=== PATIENT | male | born 1960 | race Caucasian/White ===

== ENCOUNTER → 2017-04-24 | Outpatient (CLI) | payer MEDICARE, BC ==
--- NOTE | 2017-04-24 23:15 | MR ---
EXAMINATION TYPE: MR lumbar spine wo con DATE OF EXAM: 04/24/2017 COMPARISON: 03/30/2010 HISTORY: Low back pain getting worse, previous MRI on PACS 03/2010 TECHNIQUE: Multiplanar, multisequence images of the lumbar spine were acquired. There is 5 mm anterior subluxation of L4 in relation L5. There is mild decreased signal and narrowing at the L4-5 L5-S1 disc spaces. There is posterior mild central disc herniation at L5-S1 into the spi nal canal. There is hypertrophic facet arthropathy at L4-5. There is no paraspinal mass. I see no spo ndylolysis. There is narrowing of the neural foramina bilaterally at L4-5 and L5-S1 due to facet arth ropathy and subluxation. There is mild L4-5 bony spinal stenosis. There is no compression fracture. IMPRESSION: Spondylosis in the lower lumbar spine. There is a posterior L5-S1 disc herniation without significant impingement on the neural elements. This is stable compared to old exam. There is new degenerative first degree L4-5 spondylolisthesis and new spinal stenosis at L4-5 compare d to old exam. No definite spondylolysis seen.
== END | disposition home or self-care (01) ==
LOC: RADMRIMAIN 19:50
PROVIDERS: ATTEND Family Medicine
DX: M51.27 Other intervertebral disc displacement, lumbosacral region (principal); M43.16 Spondylolisthesis, lumbar region; M47.816 Spondylosis without myelopathy or radiculopathy, lumbar region
CPT/HCPCS: 72148

== ENCOUNTER 2017-11-22 22:54 | Emergency (ER) | payer BC, MEDICARE ==
[2017-11-22 22:59] VITALS: BP 118/87; PULSE 80; RESP 16; TEMP 98.2
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
--- NOTE | 2017-11-22 23:31 | XR ---
EXAMINATION TYPE: XR hand complete LT DATE OF EXAM: 11/22/2017 COMPARISON: NONE HISTORY: Left thumb tingling TECHNIQUE: 3 views FINDINGS: I see no fracture nor dislocation. Metacarpals are intact. There is mild spurring at the IP joint of the thumb. There is mild spurring at the DIP joints of the fingers. There is spurring at th e first carpometacarpal joint. There are no erosions. IMPRESSION: There is some osteoarthritis. No fracture. No sign of inflammatory arthritis.
== END 2017-11-22 23:45 | disposition home or self-care (01) ==
LOC: EC 22:54
DX: M19.042 Primary osteoarthritis, left hand (principal); M77.9 Enthesopathy, unspecified; J44.9 Chronic obstructive pulmonary disease, unspecified; Z86.718 Personal history of other venous thrombosis and embolism; Z86.14 Personal history of Methicillin resistant Staphylococcus aureus infection; Z98.890 Other specified postprocedural states; Z88.6 Allergy status to analgesic agent; Z88.1 Allergy status to other antibiotic agents; Z88.0 Allergy status to penicillin; Z79.51 Long term (current) use of inhaled steroids; Z79.899 Other long term (current) drug therapy
CPT/HCPCS: 29125; 99283

== ENCOUNTER 2023-04-28 16:53 | Emergency (ER) | payer MEDICARE ==
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
--- NOTE | 2023-04-28 17:59 | XR ---
Right knee HISTORY: Knee pain following fall. COMPARISON: None TECHNIQUE: 3 views the right knee were obtained. FINDINGS: There is no fracture, dislocation or focal intraosseous abnormality. There is tricompartment osteoarthritis moderate in the medial compartment where there is moderate ebenezer rowing and hypertrophic spurring and mild in the lateral compartment where there is mild narrowing an d hypertrophic spurring and chondrocalcinosis. There is severe narrowing and hypertrophic spurring in the patellofemoral compartment consistent with severe osteoarthritic change.. There is no joint effu falguni. Soft tissues unremarkable. IMPRESSION: 1. No evidence of acute trauma. 2. Tricompartment osteoarthritis as described above.
--- NOTE | 2023-04-28 18:00 | XR ---
Right shoulder HISTORY: Pain following fall COMPARISON: None TECHNIQUE: 3 views the right shoulder were obtained. FINDINGS: There is no fracture, dislocation, intra-articular or intraosseous abnormality. IMPRESSION: No evidence of acute trauma.
--- NOTE | 2023-04-28 18:02 | XR ---
Cervical spine HISTORY: Pain following fall. COMPARISON: None TECHNIQUE: Views of the cervical spine were obtained FINDINGS: The craniovertebral junction relationships and prevertebral soft tissues are normal. The cervical vertebral segments are normal in height and alignment and there is no fracture subluxati on. There is mild to moderate degenerative disc disease at the C6-7 level where there is mild to mode rate disc space narrowing and anterior spondylosis. There are mild degenerative changes of the uncovertebral joints resulting in mild bony neural foramin al encroachment at multiple levels on the left but no significant bony encroachment of the right neur al foramina. IMPRESSION: 1. Mild degenerative changes. 2. No acute cervical spine trauma
[2023-04-28] MEDS ORDERED: ACETAMINOPHEN TAB 325 MG TAB PO STA (18:10)
[2023-04-28] MEDS ORDERED: ORPHENADRINE 30 MG/ML 2 ML VIAL IM STA (18:10)
[2023-04-28] MEDS ORDERED: LIDOCAINE 5% PATCH TOPICAL STA (18:10)
[2023-04-28 18:39] VITALS: BP 133/80; PULSE 68; RESP 16; TEMP 97.8
== END 2023-04-28 18:39 | disposition home or self-care (01) ==
LOC: EC 16:53
DX: S46.811A Strain of other muscles, fascia and tendons at shoulder and upper arm level, right arm, initial encounter (principal); M47.812 Spondylosis without myelopathy or radiculopathy, cervical region; J44.9 Chronic obstructive pulmonary disease, unspecified; Z79.51 Long term (current) use of inhaled steroids; Z79.899 Other long term (current) drug therapy; Z88.6 Allergy status to analgesic agent; Z88.0 Allergy status to penicillin; Z88.8 Allergy status to other drugs, medicaments and biological substances; Z88.1 Allergy status to other antibiotic agents; X58.XXXA Exposure to other specified factors, initial encounter
CPT/HCPCS: 72050; 73030; 73562; 99283; 96372; J2360

== ENCOUNTER → 2024-04-08 | Outpatient (CLI) | payer MEDICARE ==
--- NOTE | 2024-04-08 16:21 | MR ---
EXAMINATION TYPE: MR shoulder RT wo con DATE OF EXAM: 04/08/2024 COMPARISON: Outside right shoulder x-ray March 02, 2024 HISTORY: Right shoulder pain since 2009. History of surgery 2009. TECHNIQUE: Multiplanar, multisequence imaging of the right shoulder is performed without contrast. FINDINGS: Suboptimal study with motion. Rotator Cuff: Increased signal in the distal infraspinatus and supraspinatus tendons. Distal supraspi natus tendon shows focal tear involving both bursal and articular surface extending from anterior dir ection coronal images 16 and sagittal image 30. Subscapularis tendon is intact. Rotator cuff muscle b ulk is preserved. Acromioclavicular Joint: Some widening at the acromioclavicular joint is probably prior surgery at th is level. There is moderate spurring noted. Glenohumeral Joint: Spurring and narrowing are present. No significant effusion. Labrum: The labrum appears grossly intact given limitation of non-arthrogram study. Biceps Tendon: The long head of biceps is in normal location within bicipital groove. Bone marrow signal: Prominent subchondral cyst involving the lateral aspect of the humeral head. Other: No additional significant abnormality is appreciated. IMPRESSION: 1. Presence of prior distal clavicular surgery is suspected. 2. At least moderate lateral humeral joint degenerative changes. 3. Tendinosis of the infraspinatus and supraspinatus tendon. There is more significant focal tear of the supraspinatus tendon at humeral head insertion.
== END | disposition home or self-care (01) ==
LOC: RADMRIMAIN 15:15
PROVIDERS: ATTEND Orthopaedic Surgery
DX: S46.911A Strain of unspecified muscle, fascia and tendon at shoulder and upper arm level, right arm, initial encounter (principal); M67.813 Other specified disorders of tendon, right shoulder